=== PATIENT | female | born 1985 | race Caucasian/White ===

== ENCOUNTER 2018-08-28 00:01 | Emergency (ER) | payer OTHER ==
[~2018-08-28] VITALS: Ht 154.9 cm; Wt 72.6 kg
[~2018-08-28 00:01] MED LIST: DESPEC-DM TABL1 EAC1 PO; OSEL75CA PO
[2018-08-28] MEDS ORDERED: PEPCID40 MG PO (03:46)
[2018-08-28] MEDS ORDERED: LEVSIN/SL0.125 MG SL (03:46)
== END 2018-08-28 03:51 | disposition home or self-care (01) ==
LOC: ER 00:01
DX: R10.11 Right upper quadrant pain (principal)

== ENCOUNTER 2018-12-16 15:53 | Emergency (ER) | payer OTHER ==
[~2018-12-16] VITALS: Ht 154.9 cm; Wt 83.9 kg
[~2018-12-16 15:53] MED LIST changes: +LEVSIN/SL0.125 MG SL; +PEPCID40 MG PO
== END 2018-12-16 21:00 | disposition home or self-care (01) ==
LOC: ER 15:53
DX: K80.20 Calculus of gallbladder without cholecystitis without obstruction (principal)

== ENCOUNTER 2024-01-03 12:09 | Emergency (ER) | payer OTHER ==
[~2024-01-03] VITALS: Ht 154.9 cm; Wt 90.7 kg
[2024-01-03] MEDS ORDERED: METHYLPREDNISOLONE SOD SUCC 125 MG VIAL IV ONE (16:30)
[2024-01-03] MEDS ORDERED: FAMOTIDINE/PF 20 MG/2 ML VIAL IV ONE (16:30)
[2024-01-03] MEDS ORDERED: DIPHENHYDRAMINE HCL 50 MG/ML VIAL 1ML IM ONE (16:30)
[2024-01-03] MEDS ORDERED: BENADRYL ALLERG25 MG PO (16:48)
[2024-01-03] MEDS ORDERED: PEPCID AC20 MG PO (16:48)
[2024-01-03] MEDS ORDERED: MEDROLPACK PO (16:48)
== END 2024-01-03 17:42 | disposition home or self-care (01) ==
LOC: ER 12:10
DX: T78.49XA Other allergy, initial encounter (principal); Z88.6 Allergy status to analgesic agent

== ENCOUNTER 2025-08-27 18:41 | Emergency (ER) | payer OTHER ==
[~2025-08-27] VITALS: Ht 154.9 cm; Wt 104.3 kg
[~2025-08-27 18:41] MED LIST changes: +BENADRYL ALLERG25 MG PO; +MEDROLPACK PO; +PEPCID AC20 MG PO
[2025-08-27] MEDS ORDERED: IRBESARTAN-HCT1 EACH (19:36)
[2025-08-27 21:16] LABS: BASO % 0.3 % (0.1-1.2); EOS # 0.27 (0.04-0.54); EOS % 3.0 % (0.7-7.0); LYMPH # 2.64 (1.18-3.74); LYMPH % 29.6 % (19.3-53.1); MEAN PLATELET VOLUME 11.60 fl (9.4-12.4); MONO # 0.70 (0.24-0.82); MONO % 7.8 % (4.7-12.5); NEUT # 5.26 (1.56-6.13); NEUT % 59.1 % (34.0-71.1); RED CELL DISTRIBUTION WIDTH 12.8 % (11.6-14.4)
[2025-08-27 21:43] LABS: ALT/SGPT 29.0 U/L (12-78); AST/SGOT 14.0 U/L (15-37); BILIRUBIN TOTAL 0.26 mg/dL (0.3-1.2); BUN CREA RATIO 13.0 (7.0-25.0); CREATININE SERUM 1.06 mg/dL (0.55-1.02); GFR 57.13; GLOBULINA 3.7 G/DL (2.4-3.5); GLUCOSE FASTING 76.0 mg/dL (65-100); OSMOLALITY SERUM 279.0 MOSM/KG (275-295)
[2025-08-27 22:08] LABS: URINE APPEARANCE Clear; URINE BILIRRUBIN Negative (NEGATIVE); URINE BLOOD Negative; URINE COLOR Yellow; URINE GLUCOSE Negative (NEGATIVE); URINE KETONE Trace (NEGATIVE); URINE LEUKOCYTE Moderate; URINE NITRATE Negative; URINE PROTEIN Trace (NEGATIVE); URINE UROBILINOGEN 1.0 E.U./dl
[2025-08-27 22:12] LABS: URINE BACTERIA 650.1 uL (0.0-1933); URINE EPITHELIAL CELLS 10.7 uL (0.0-38.8); URINE RBC 15.9 uL (0.0-20.8); URINE WBC 328.2 uL (0.0-23.2)
[2025-08-27 22:16] LABS: URINE CAST 0.14 uL (0.0-1.40)
[2025-08-27] MEDS ORDERED: MACROBID 100 M100 MG PO (23:04)
[2025-08-27] MEDS ORDERED: PHENAZOPYRIDIN200 MG PO (23:04)
[2025-08-27] MEDS ORDERED: CEFTRIAXONE SODIUM 1,000 MG VIAL IM ONE (23:15)
[2025-08-27] MEDS ORDERED: CEFTRIAXONE SODIUM 1,000 MG VIAL ONE (23:19)
[2025-08-27] MEDS ORDERED: LIDOCAINE HCL 1% 10ML VIAL ONE (23:20)
== END 2025-08-27 23:34 | disposition home or self-care (01) ==
LOC: ER 18:42
DX: N39.0 Urinary tract infection, site not specified (principal); I10 Essential (primary) hypertension; Z88.6 Allergy status to analgesic agent